=== PATIENT | male | born 1985 | race Caucasian/White ===

== ENCOUNTER 2022-04-19 07:17 | Emergency (ER) | payer OTHER ==
[2022-04-19] MEDS ORDERED: CLINDAMYCIN 600MG/D5W 600 MG/50 ML BAG IV ONE (07:46)
--- NOTE | 2022-04-19 08:27 | EDPHYS ---
Physician Documentation [facility] Name: Esa Zhang Age: 36 yrs Sex: Male : 1985 Arrival Date: 04/19/2022 Time: 07:19 Bed 13 Private MD: ED Physician Brendan Perez HPI: 04/19 07:35 This 36 yrs old Male presents to ER via Ambulatory with complaints of Jaw Pain, Facial rn Swelling. 07:35 The patient presents with pain, redness, swelling. The problem is located in the left rn lower mouth. Onset: The symptoms/episode began/occurred 2 day(s) ago. Duration: The symptoms are continuous. Modifying factors: The symptoms are alleviated by nothing, the symptoms are aggravated by talking. Associated signs and symptoms: Pertinent positives: pain, redness in area, swelling, Pertinent negatives: fever. Severity of symptoms: At their worst the symptoms were moderate, in the emergency department the symptoms are unchanged. The patient has not experienced similar symptoms in the past. The patient has not recently seen a physician. Pt reports 2 days of dental pain and now swelling, pain with touching area. no fever. . Historical: - Allergies: 07:28 No Known Allergies; iw - Home Meds: 07:28 None [Active]; iw - PMHx: 07:28 None; iw - Family history:: not pertinent. - Hospitalizations: : No recent hospitalization is reported. ROS: 07:35 Constitutional: Negative for fever, chills, and weight loss, ENT: + left lower mouth rn swelling and pain Exam: 07:35 Constitutional: This is a well developed, well nourished patient who is awake, alert, rn appears uncomfortable ENT: Poor general dentition, + left lower gingival abscess with extension to left buccal space, has head to it, with fluctuance. Neck: No neck swelling or tenderness. Soft floor of mouth and submental space. Vital Signs: 07:51 BP 118 / 89; Pulse 84; Resp 16; Temp 99.6(TE); Pulse Ox 99% ; Pain 10/10; vg1 08:47 BP 129 / 60; Pulse 76; Resp 16; Pulse Ox 100% on R/A; vg1 Procedures: 07:45 I \T\ D: Incision and drainage was performed for an abscess of the left mouth Incised rn with #11 blade. Drained moderate amount purulent fluid. the patient tolerated the procedure well. MDM: 07:21 Patient medically screened. rn 07:45 Differential diagnosis: dental caries, gingivitis, dental abscess. Data reviewed: vital rn signs, nurses notes, and as a result, I will discharge patient. Counseling: I had a detailed discussion with the patient and/or guardian regarding: the historical points, exam findings, and any diagnostic results supporting the discharge/admit diagnosis, the need for outpatient follow up, to return to the emergency department if symptoms worsen or persist or if there are any questions or concerns that arise at home. Response to treatment: the patient's symptoms have markedly improved after treatment, and as a result, I will discharge patient. Special discussion: I discussed with the patient/guardian in detail that at this point there is no indication for admission to the hospital. It is understood, however, that if the symptoms persist or worsen the patient needs to return immediately for re-evaluation. Based on the history and exam findings, there is no indication for further emergent testing or inpatient evaluation. I discussed with the patient/guardian the need to see a dentist for further evaluation of the symptoms. ED course: Pt reports already has dental appt at 2PM. 04/19 07:35 Order name: Suction; Complete Time: 07:50 rn 04/19 07:35 Order name: IV Start; Complete Time: 07:50 rn Administered Medications: 07:48 Drug: Clindamycin 600 mg Route: IVPB; Infused Over: 30 mins; Site: right antecubital; vg1 08:47 Follow up: Response: No adverse reaction; IV Status: Completed infusion; IV Intake: [id number] Disposition Summary: 04/19/22 08:27 Discharge Ordered Location: Home rn Problem: new rn Symptoms: have improved rn Condition: Stable rn Diagnosis - Cellulitis and abscess of mouth rn Followup: rn - With: Private Physician - When: As needed - Reason: Recheck today's complaints, Re-evaluation by your physician Discharge Instructions: - Discharge Summary Sheet rn - Dental Abscess rn Forms: - Medication Reconciliation Form rn - Thank You Letter rn - 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
--- NOTE | 2022-04-19 08:27 | ER ---
Nurse's Notes [facility] Name: Esa Zhang Age: 36 yrs Sex: Male : 1985 Arrival Date: 04/19/2022 Time: 07:19 Bed 13 Private MD: Diagnosis: Cellulitis and abscess of mouth Presentation: 04/19 07:27 Chief complaint: Patient states: left lower jaw pain and swelling X 2 days. Coronavirus iw screen: At this time, the client does not indicate any symptoms associated with coronavirus-19. Ebola Screen: Patient negative for fever greater than or equal to 101.5 degrees Fahrenheit, and additional compatible Ebola Virus Disease symptoms Patient denies exposure to infectious person. Patient denies travel to an Ebola-affected area in the 21 days before illness onset. No symptoms or risks identified at this time. Initial Sepsis Screen: Does the patient meet any 2 criteria? No. Patient's initial sepsis screen is negative. Does the patient have a suspected source of infection? No. Patient's initial sepsis screen is negative. Risk Assessment: Do you want to hurt yourself or someone else? Patient reports no desire to harm self or others. Onset of symptoms was April 17, 2022. 07:27 Method Of Arrival: Ambulatory iw 07:27 Acuity: NAZ 4 iw 07:36 Acuity: ANZ 3 iw Historical: - Allergies: 07:28 No Known Allergies; iw - Home Meds: 07:28 None [Active]; iw - PMHx: 07:28 None; iw - Family history:: not pertinent. - Hospitalizations: : No recent hospitalization is reported. Screenin:28 Abuse screen: Denies threats or abuse. Nutritional screening: stated difficulty vg1 chewing. Tuberculosis screening: No symptoms or risk factors identified. Fall Risk None identified. Assessment: 07:28 General: Appears uncomfortable, Behavior is calm, cooperative. Pain: Complains of pain vg1 in mouth Pain currently is 10 out of 10 on a pain scale. Quality of pain is described as sharp, Pain began 2-3 days ago. became worse yesterday Noted to be grimacing. Neuro: Level of Consciousness is awake, alert, obeys commands, Oriented to person, place, time, situation. Cardiovascular: Patient's skin is warm and dry. Respiratory: Airway is patent Respiratory effort is even, unlabored. GI: No signs and/or symptoms were reported involving the gastrointestinal system. : No signs and/or symptoms were reported regarding the genitourinary system. EENT: Oral mucosa is moist. Derm: Skin is intact, is healthy with good turgor. Musculoskeletal: Circulation, motion, and sensation intact. Vital Signs: 07:51 BP 118 / 89; Pulse 84; Resp 16; Temp 99.6(TE); Pulse Ox 99% ; Pain 10/10; vg1 08:47 BP 129 / 60; Pulse 76; Resp 16; Pulse Ox 100% on R/A; vg1 ED Course: 07:19 Patient arrived in ED. am2 07:21 Brendan Perez MD is Attending Physician. rn 07:24 Jinny Santamaria RN is Primary Nurse. vg1 07:28 Triage completed. iw 07:28 Arm band placed on. iw 07:28 Patient has correct armband on for positive identification. Bed in low position. Call vg1 light in reach. Side rails up X 1. 07:28 Pulse ox on. NIBP on. vg1 07:47 Inserted saline lock: 20 gauge in right antecubital area, using aseptic technique. vg1 08:15 Dr Perez lanced Left side of pt gum, assisted in suction of secretions. vg1 08:45 IV discontinued, intact, bleeding controlled, No redness/swelling at site. Pressure vg1 dressing applied. Administered Medications: 07:48 Drug: Clindamycin 600 mg Route: IVPB; Infused Over: 30 mins; Site: right antecubital; vg1 08:47 Follow up: Response: No adverse reaction; IV Status: Completed infusion; IV Intake: [id number] Medication: 08:46 VIS not applicable for this client. vg1 Intake: 08:47 IV: 50ml; Total: 50ml. vg1 Outcome: 08:27 Discharge ordered by . rn 08:44 Discharged to home ambulatory. vg1 08:44 Condition: good 08:44 Discharge instructions given to patient, Instructed on discharge instructions, follow up and referral plans. medication usage, Demonstrated understanding of instructions, follow-up care, medications, wound care, Prescriptions given X 2. 08:47 Patient left the ED. vg1 Signatures: Myrna Woodruff RN RN iw Brendan Perez MD MD rn Moreno, Amanda am2 Rosalio, Jinny, RN RN vg1 Corrections: (The following items were deleted from the chart) 07:53 07:51 BP 118 / 89; Pulse 84bpm; Resp 16bpm; Pulse Ox 99%; Pain 07/21; vg1 vg1
[2022-04-19 08:53] VITALS: TEMP 99.6
[2022-04-19 08:54] VITALS: BP 129/60; O2SAT 100
== END 2022-04-19 08:47 | disposition home or self-care (01) ==
LOC: ER 07:17
PROC: 0W930ZZ Drainage of Oral Cavity and Throat, Open Approach (ICD-10-PCS; principal; 2022-04-19)
DX: K12.2 Cellulitis and abscess of mouth (principal)
CPT/HCPCS: 96365; 99284